=== PATIENT | female | born 1935 | race Two or more races ===

== ENCOUNTER 2020-04-12 14:58 | Inpatient (IN) | payer OTHER ==
[~2020-04-12] VITALS: Ht 152.4 cm; Wt 59.5 kg
[2020-04-12] MEDS ORDERED: ACETAMINOPHEN 325 MG TAB PO ONE (15:45)
[2020-04-12 18:01] LABS: Basophils # (auto) 0.1 10 ^3/uL (0-0.2); Basophils % (auto) 0.9 % (0.0-2.0); Eosinophils # (auto) 0.1 10 ^3/uL (0-0.8); Eosinophils % (auto) 1.1 % (0.0-7.0); Hematocrit 36.6 % (36.0-46.0); Hemoglobin 11.8 g/dL (12.2-16.2); Lymphocytes # (auto) 1.6 10 ^3/uL (0.4-5.4); Lymphocytes % (auto) 14.1 % (10.0-50.0); Mean Corpuscular Hemoglobin 30.1 pg (28.0-32.0); Mean Corpuscular Hgb Conc. 32.1 g/dL (32.0-36.0); Mean Corpuscular Volume 93.9 fL (80.0-100.0); Monocytes # (auto) 0.6 10 ^3/uL (0-1.3); Monocytes % (auto) 5.1 % (0.0-12.0); Neutrophils % (auto) 78.8 % (37.0-80.0); Platelet Count (auto) 231 10^3/uL (140-450); Red Cell Distribution Width 14.8 % (11.8-14.3); White Blood Cell 11.4 10^3/uL (4.4-10.8)
[2020-04-12 18:27] LABS: Partial Thromboplastin Time 28.4 sec (23.0-31.2)
[2020-04-12 18:29] LABS: Albumin 3.7 g/dL (3.4-5.0); BUN/Creatinine Ratio 31.3; Calcium 8.8 mg/dL (8.5-10.1); Potassium 4.2 mmol/L (3.5-5.1)
[2020-04-12 18:34] LABS: Bilirubin, Total 0.4 mg/dL (0.2-1.0); Total Protein 7.8 g/dL (6.4-8.2)
[2020-04-12] MEDS ORDERED: MORPHINE SULF INJ 2 MG/ML SYRINGE 1ML IV ONE (20:15)
[2020-04-12] MEDS ORDERED: ONDANSETRON HCL 4 MG/2 ML VIAL IV ONE (20:15)
[2020-04-12 21:07] LABS: Urine Bacteria FEW /hpf (None Seen); Urine Blood Negative /uL (Negative); Urine Hyaline Cast FEW /lpf (0 - 2); Urine WBC 34 /hpf (0 - 5); Urine WBC Clumps PRESENT /hpf (None Seen)
[2020-04-12] MEDS ORDERED: LORazepam 2MG/ML-1ML VIAL IV PRN ×2 (21:30)
[2020-04-12] MEDS ORDERED: ASPirin 81 mg TAB PO ONE (22:00)
[2020-04-12] MEDS ORDERED: cefTRIAXone SOD 1,000 MG VL IM ONE (22:00)
[2020-04-12] MEDS ORDERED: SULFAMETHOX W/TRIMETH(800/160MG) DS TAB PO ONE (22:00)
[2020-04-12] MEDS ORDERED: CLOPIDOGREL BISULFATE 75 MG TAB PO ONE (22:00)
[2020-04-12] MEDS ORDERED: FERR-20 PO (22:40)
[2020-04-12] MEDS ORDERED: NIFE20CA PO (22:40)
[2020-04-12] MEDS ORDERED: HCTZ25T PO (22:40)
[2020-04-12] MEDS ORDERED: PANC1CAP PO (22:40)
[2020-04-12] MEDS ORDERED: LOSA-69 PO (22:40)
[2020-04-12] MEDS ORDERED: ONDANSETRON HCL 4 MG/2 ML VIAL IV PRN (23:45)
[2020-04-12] MEDS ORDERED: MORPHINE SULF INJ 2 MG/ML SYRINGE 1ML IV PRN (23:45)
[2020-04-12] MEDS ORDERED: MORPHINE SULFATE 4 MG/ML SYR/VIAL IV PRN (23:45)
[2020-04-12] MEDS ORDERED: DOCUSATE SOD 100 MG CAP PO PRN (23:45)
[2020-04-12] MEDS ORDERED: HYDROcodone-ACET 5/325MG TAB PO PRN (23:45)
[2020-04-12] MEDS ORDERED: NITROGLYCERIN 0.4 MG SL TAB SL PRN (23:45)
[2020-04-13] VITALS (8 sets, daily range): BP systolic 121–157; BP diastolic 41–64
[2020-04-13] MEDS: SODIUM CHLORIDE 0.9% 1,000 ML IV SCH ×2 (00:41→20:37)
--- NOTE | 2020-04-13 02:24 | NUR ---
Telemetry admit from [facility] admitted to Telemetry unit after SBAR received. Patient oriented to Cassandra Velazquez, primary RN, unit, room, bed, and unit policies regarding patient care and visiting hours. Patient now on continuous telemetry monitoring, tele box # [id number] and telemetry reading on arrival to unit is SR. Patient placed on bedside oxygen, weighed by bedscale and encouraged to call if they need something. All questions and concerns addressed, patient verbalized understanding.
[2020-04-13] MEDS ORDERED: PNEUMOCOCCAL VACC POLYS 25 MCG/0.5 ML VIAL IM ONE (03:30)
[2020-04-13] MEDS ORDERED: INFLUENZA QUAD 2020-2021 0.5 ML SYRG IM ONE (03:30)
--- NOTE | 2020-04-13 07:25 | NUR ---
Opening Shift Note Assumed care of patient, awake and alert. No S/S of distress/SOB. Pt. does complain of headache 5 out of 10. This RN will address this per 's orders and will reassess Q1 and PRN. Also instructed on POC and to call for assist PRN.
[2020-04-13 08:09] LABS: Basophils # (auto) 0 10 ^3/uL (0-0.2); Basophils % (auto) 0.2 % (0.0-2.0); Eosinophils # (auto) 0.1 10 ^3/uL (0-0.8); Eosinophils % (auto) 0.8 % (0.0-7.0); Hematocrit 34.7 % (36.0-46.0); Hemoglobin 11.2 g/dL (12.2-16.2); Lymphocytes # (auto) 1.6 10 ^3/uL (0.4-5.4); Lymphocytes % (auto) 19.9 % (10.0-50.0); Mean Corpuscular Hemoglobin 30.4 pg (28.0-32.0); Mean Corpuscular Hgb Conc. 32.3 g/dL (32.0-36.0); Mean Corpuscular Volume 94.1 fL (80.0-100.0); Monocytes # (auto) 0.8 10 ^3/uL (0-1.3); Monocytes % (auto) 10.8 % (0.0-12.0); Neutrophils # (auto) 5.4 10 ^3/uL (1.6-8.6); Neutrophils % (auto) 68.3 % (37.0-80.0); Platelet Count (auto) 220 10^3/uL (140-450); Red Blood Cells 3.69 10^6/uL (4.0-5.20); Red Cell Distribution Width 14.3 % (11.8-14.3); White Blood Cell 7.9 10^3/uL (4.4-10.8)
[2020-04-13 08:27] LABS: Potassium 4.3 mmol/L (3.5-5.1)
[2020-04-13 08:35] LABS: Albumin 3.1 g/dL (3.4-5.0); BUN/Creatinine Ratio 31.1; Bilirubin, Total 0.4 mg/dL (0.2-1.0); Calcium 8.5 mg/dL (8.5-10.1); Total Protein 6.5 g/dL (6.4-8.2)
[2020-04-13] MEDS: ACETAMINOPHEN 325 MG TAB PO PRN ×2 (09:25→20:37)
[2020-04-13] MEDS: cefTRIAXone 1GM/50ML D5W 50 ML IV SCH (09:25)
[2020-04-13] MEDS: HCTZ 25 MG TAB PO SCH (09:25)
[2020-04-13] MEDS: LOSARTAN POTASSIUM 50 MG TAB PO SCH (09:26)
[2020-04-13] MEDS: MULTIPLE VITAMIN TAB PO SCH (09:26)
[2020-04-13] MEDS: ZINC SULFATE 220mg CAP or TAB PO SCH (09:27)
[2020-04-13] MEDS: NIFEdipine 10 MG CAP PO SCH (09:28)
[2020-04-13] MEDS: CLOPIDOGREL BISULFATE 75 MG TAB PO SCH (09:29)
[2020-04-13] MEDS: ASPirin 81 mg TAB PO SCH (09:29)
[2020-04-13] MEDS: ASCORBIC ACID 500 MG TAB PO SCH ×2 (09:30→21:34)
[2020-04-13] MEDS: FERROUS SULFATE 325 MG TAB PO SCH ×2 (09:30→21:34)
[2020-04-13] MEDS ORDERED: FAMOTIDINE 20 MG TAB PO SCH (10:00)
[2020-04-13] MEDS ORDERED: CLOPIDOGREL BISULFATE 75 MG TAB PO SCH (10:00)
[2020-04-13] MEDS ORDERED: ASPirin 81 mg TAB PO SCH (10:00)
--- NOTE | 2020-04-13 10:00 | NUR ---
This RN let Dr. Casas know of pt's critical troponin level .696
[2020-04-13] MEDS ORDERED: FAMOTIDINE 20 MG TAB PO ONE (11:00)
[2020-04-13] MEDS ORDERED: ENOXAPARIN SOD 60 MG/0.6 ML SYRINGE SC ONE (11:00)
--- NOTE | 2020-04-13 13:00 | NUR ---
Dr. Atkinson at bedside discussing POC with pt.
--- NOTE | 2020-04-13 15:56 | NUR ---
This RN just spoke to Dr. Atkinson with respect to Pt.'s troponin level of 0.422. Pt.'s troponin is currently trending down so Dr. Atkinson is just waiting on ECHO and said to keep pt. on Aspirin, Plavix, and added Lipitor.
--- NOTE | 2020-04-13 19:20 | NUR ---
THIS RN ENDORSED CARE TO HANDWRITING EXPERT RN. PT. SHOWED NO S/S OF DISTRESS.
--- NOTE | 2020-04-13 19:40 | NUR ---
OPENING SHIFT NOTE Assumed care of patient who is A&O x4. Currently on RA with no s/s of distress. Reports 5/10 pain to left rib area. Pain management options discussed. PIV in right AC is intact and patent. Flushed with 10ml NS. Patient is ambulatory with the use of a cane at baseline. Cane is not present at the bedside. Bruising noted to chin resulting from mechanical fall. POC discussed and patient verbalizes understanding. Bed is in low locked position with side rails up x2. Call light is within reach and patient encouraged to call for assistance when needed. Will continue to monitor for changes PRN.
--- NOTE | 2020-04-13 20:41 | NUR ---
PAIN Patient reports 5/10 pain to left ribs. Offered [place] according to orders due to moderate pain level. Patient requests Tylenol. Administered as requested.
[2020-04-13 21:48] LABS: Cholesterol 163 mg/dL (< 200)
[2020-04-13 21:51] LABS: HDL Cholesterol 77 mg/dL (40-59); LDL Cholesterol 81 mg/dL (< 100); Triglycerides 72 mg/dL (< 150)
[2020-04-13] MEDS ORDERED: ATORVASTATIN 20 MG TAB PO SCH (22:00)
[2020-04-13] MEDS ORDERED: ENOXAPARIN SOD 60 MG/0.6 ML SYRINGE SC SCH (22:00)
--- NOTE | 2020-04-13 22:48 | NUR ---
SHERI SWAB Sample obtained, double bagged and hand walked to lab.
--- NOTE | 2020-04-14 03:01 | NUR ---
IN-HOUSE COVID SWAB Specimen collected. Hand delivered to lab and logged into log book.
[2020-04-14 05:00] VITALS: BP 129/60
[2020-04-14 06:08] LABS: Basophils # (auto) 0 10 ^3/uL (0-0.2); Basophils % (auto) 0.3 % (0.0-2.0); Eosinophils # (auto) 0.2 10 ^3/uL (0-0.8); Eosinophils % (auto) 2.3 % (0.0-7.0); Hematocrit 35.6 % (36.0-46.0); Hemoglobin 11.8 g/dL (12.2-16.2); Lymphocytes # (auto) 2.8 10 ^3/uL (0.4-5.4); Lymphocytes % (auto) 35.4 % (10.0-50.0); Mean Corpuscular Hemoglobin 30.9 pg (28.0-32.0); Mean Corpuscular Hgb Conc. 33.1 g/dL (32.0-36.0); Mean Corpuscular Volume 93.5 fL (80.0-100.0); Monocytes # (auto) 0.7 10 ^3/uL (0-1.3); Monocytes % (auto) 9.3 % (0.0-12.0); Neutrophils # (auto) 4.2 10 ^3/uL (1.6-8.6); Neutrophils % (auto) 52.7 % (37.0-80.0); Nucleated Red Blood Cells % 0.2 %; Platelet Count (auto) 230 10^3/uL (140-450); Red Blood Cells 3.81 10^6/uL (4.0-5.20); Red Cell Distribution Width 14.4 % (11.8-14.3)
[2020-04-14 06:21] LABS: INR 1.07 (0.9-1.15); Partial Thromboplastin Time 30.3 sec (23.0-31.2)
[2020-04-14 06:28] LABS: Potassium 4.3 mmol/L (3.5-5.1)
[2020-04-14 06:34] LABS: BUN/Creatinine Ratio 28.8; Calcium 8.5 mg/dL (8.5-10.1)
--- NOTE | 2020-04-14 07:20 | NUR ---
Opening Shift Note Assumed care of patient, awake and alert. No S/S of distress/SOB or pain. Instructed on POC and to call for assist PRN, will continue to monitor for changes Q1hr and PRN.
[2020-04-14 09:00] VITALS: BP 150/62
[2020-04-14] MEDS: cefTRIAXone 1GM/50ML D5W 50 ML IV SCH (09:59)
[2020-04-14] MEDS ORDERED: FAMOTIDINE 20 MG TAB PO SCH (10:00)
[2020-04-14] MEDS ORDERED: ENOXAPARIN SOD 60 MG/0.6 ML SYRINGE SC SCH (10:00)
[2020-04-14] MEDS: NIFEdipine 10 MG CAP PO SCH (10:01)
[2020-04-14] MEDS: HCTZ 25 MG TAB PO SCH (10:03)
[2020-04-14] MEDS: CLOPIDOGREL BISULFATE 75 MG TAB PO SCH (10:04)
[2020-04-14] MEDS: LOSARTAN POTASSIUM 50 MG TAB PO SCH (10:04)
[2020-04-14] MEDS: ASPirin 81 mg TAB PO SCH (10:05)
[2020-04-14] MEDS: FERROUS SULFATE 325 MG TAB PO SCH (10:05)
[2020-04-14] MEDS: ZINC SULFATE 220mg CAP or TAB PO SCH (10:05)
[2020-04-14] MEDS: ASCORBIC ACID 500 MG TAB PO SCH (10:05)
[2020-04-14] MEDS: MULTIPLE VITAMIN TAB PO SCH (10:06)
[2020-04-14] MEDS: SODIUM CHLORIDE 0.9% 1,000 ML IV SCH (10:18)
[2020-04-14 13:18] VITALS: BP 121/44
[2020-04-14] MEDS ORDERED: FERR-20 PO (13:25)
[2020-04-14] MEDS ORDERED: ASPI-543 PO (13:25)
[2020-04-14] MEDS ORDERED: CLOP75TA28 PO (13:25)
[2020-04-14] MEDS ORDERED: ATOR20TA50 PO (13:25)
[2020-04-14 17:00] VITALS: BP 132/57
[2020-04-14 17:31] VITALS: BP 150/62
--- NOTE | 2020-04-14 19:25 | NUR ---
Discharge instructions given as ordered. Encourage to follow up with PMD as instructed. All questions and concerns addressed. Patient verbalized understanding. Medication reconciliation form completed and copy given to patient. IV removed with catheter intact and pressure dressing applied. Telemetry unit returned to ICU. Patient taken to vehicle via wheelchair with all personal belongings, accompanied by a staff member. No distress noted at time of departure.
== END 2020-04-14 19:25 | disposition home or self-care (01) | DRG 69 ==
LOC: EDBD 14:58 → ER 14:58 → TELE 14:59 → TELE-WESTW 04-13 02:25
PROVIDERS: ADMIT Nurse Practitioner Family; ATTEND Hospitalist
DX: G45.9 Transient cerebral ischemic attack, unspecified (principal); Q43.3 Congenital malformations of intestinal fixation; B69.0 Cysticercosis of central nervous system; N39.0 Urinary tract infection, site not specified; I67.1 Cerebral aneurysm, nonruptured; D64.9 Anemia, unspecified; N18.9 Chronic kidney disease, unspecified; S01.551A Open bite of lip, initial encounter; R26.9 Unspecified abnormalities of gait and mobility; E78.5 Hyperlipidemia, unspecified; F17.200 Nicotine dependence, unspecified, uncomplicated; I12.9 Hypertensive chronic kidney disease with stage 1 through stage 4 chronic kidney disease, or unspecified chronic kidney disease; I25.10 Atherosclerotic heart disease of native coronary artery without angina pectoris; W01.0XXA Fall on same level from slipping, tripping and stumbling without subsequent striking against object, initial encounter; R77.8 Other specified abnormalities of plasma proteins; Z20.828 Contact with and (suspected) exposure to other viral communicable diseases; G93.89 Other specified disorders of brain; Y93.9 Activity, unspecified; Y92.481 Parking lot as the place of occurrence of the external cause; Y99.9 Unspecified external cause status; Z79.82 Long term (current) use of aspirin; Z79.02 Long term (current) use of antithrombotics/antiplatelets; Z79.899 Other long term (current) drug therapy; Z82.49 Family history of ischemic heart disease and other diseases of the circulatory system; Z83.3 Family history of diabetes mellitus; Z85.07 Personal history of malignant neoplasm of pancreas; Z88.6 Allergy status to analgesic agent; Z90.49 Acquired absence of other specified parts of digestive tract; Z90.710 Acquired absence of both cervix and uterus
CPT/HCPCS: 36415; 70450; 70545; 70551; 71045; 73130; 73200; 74176; 80048; 80053; 80061; 81001; 82150; 83690; 84484; 85025; 85610; 85730; 87426; 93005; 93306; 93886; 96372; 96374; 96375; 97163; G0378; J0696; J2405

== ENCOUNTER 2020-05-05 15:16 | Emergency (ER) | payer OTHER ==
[~2020-05-05] VITALS: Ht 162.6 cm; Wt 49.9 kg
[~2020-05-05 15:16] MED LIST: ASPI-543 PO; ATOR20TA50 PO; CLOP75TA28 PO; FERR-20 PO; HCTZ25T PO; LOSA-69 PO; NIFE20CA PO; PANC1CAP PO
[2020-05-05] MEDS ORDERED: SODIUM CHLORIDE 0.9% 1,000 ML IV ONE (15:30)
[2020-05-05 16:00] LABS: Albumin 2.9 g/dL (3.4-5.0); Anion Gap 8 (5-15); Blood Urea Nitrogen 79 mg/dL (7-18); Carbon Dioxide 20 mmol/L (21-32); Chloride 111 mmol/L (98-107); Glucose 171 mg/dL (74-106); Potassium 4.1 mmol/L (3.5-5.1); Sodium 139 mmol/L (136-145)
[2020-05-05 16:01] LABS: Basophils # (auto) 0.1 10 ^3/uL (0-0.2); Eosinophils # (auto) 0.1 10 ^3/uL (0-0.8); Hemoglobin 7.2 g/dL (12.2-16.2); Monocytes # (auto) 0.7 10 ^3/uL (0-1.3); Neutrophils % (auto) 78.3 % (37.0-80.0)
[2020-05-05 16:03] LABS: Basophils % (auto) 0.5 % (0.0-2.0); Eosinophils % (auto) 0.5 % (0.0-7.0); Hematocrit 21.6 % (36.0-46.0); Lymphocytes # (auto) 1.6 10 ^3/uL (0.4-5.4); Lymphocytes % (auto) 14.6 % (10.0-50.0); Mean Corpuscular Hemoglobin 31.9 pg (28.0-32.0); Mean Corpuscular Hgb Conc. 33.4 g/dL (32.0-36.0); Mean Corpuscular Volume 95.4 fL (80.0-100.0); Monocytes % (auto) 6.1 % (0.0-12.0); Neutrophils # (auto) 8.4 10 ^3/uL (1.6-8.6); Platelet Count (auto) 229 10^3/uL (140-450); Red Blood Cells 2.26 10^6/uL (4.0-5.20); Red Cell Distribution Width 14.6 % (11.8-14.3); White Blood Cell 10.7 10^3/uL (4.4-10.8)
[2020-05-05 16:06] LABS: Alanine Aminotransferase 17 U/L (13-56); Alkaline Phosphatase 66 U/L (45-117); Aspartate Aminotransferase 15 U/L (15-37); BUN/Creatinine Ratio 59.4; Bilirubin, Total 0.2 mg/dL (0.2-1.0); GFR African American 49 mL/min; GFR Non-African American 40 mL/min; Total Protein 5.7 g/dL (6.4-8.2)
[2020-05-05 20:39] VITALS: BP 148/66
== END 2020-05-05 21:29 | disposition home or self-care (01) ==
LOC: EDBD 15:16 → ER 15:16
DX: I95.9 Hypotension, unspecified (principal); E86.0 Dehydration; I10 Essential (primary) hypertension; Z79.82 Long term (current) use of aspirin; Z79.899 Other long term (current) drug therapy; Z88.6 Allergy status to analgesic agent
CPT/HCPCS: 36415; 71045; 80053; 84484; 85025; 96360; 99284; J7030